=== PATIENT | male | born 1980 | race Two or more races ===

== ENCOUNTER 2021-09-12 21:13 | Emergency (ER) | payer OTHER ==
[~2021-09-12] VITALS: Ht 175.3 cm; Wt 81.6 kg
== END 2021-09-12 22:58 | disposition home or self-care (01) ==
LOC: ER 21:13
DX: B34.9 Viral infection, unspecified (principal); Z20.822 Contact with and (suspected) exposure to COVID-19; Z88.6 Allergy status to analgesic agent